=== PATIENT | female | born 1940 | race American Indian/Alaskan Native ===

== ENCOUNTER 2017-02-13 10:56 | Outpatient (CLI) | payer MEDICARE, MEDICAID ==
--- NOTE | 2017-02-13 12:10 | Mammography Report ---
Left screening mammogram with CAD. History: Cancer screening. Comparison study is dated December 22, 2015. The patient status post right mastectomy. Findings: There are scattered fibroglandular densities which are stable. Minimal post biopsy changes in the upper outer quadrant of the left breast are also stable. No masses, suspicious calcifications, or new areas of distortion are seen. Impression: Stable benign findings. BI-RADS code: 2. Recommendation: Annual screening.
== END 2017-02-13 10:57 | disposition home or self-care (01) ==
LOC: MAMMO 10:56
PROVIDERS: ATTEND Internal Medicine
DX: Z12.31 Encounter for screening mammogram for malignant neoplasm of breast (principal); Z90.11 Acquired absence of right breast and nipple
CPT/HCPCS: G0202-52